=== PATIENT | male | born 1950 | race Caucasian/White ===

== ENCOUNTER → 2019-01-22 07:39 | Outpatient (CLI) | payer MEDICARE, SELFPAY ==
[2019-01-22 08:35] LABS: Add Manual Diff / Slide Review NO; Basophils Absolute Auto 0 /uL (0-100); Basophils Percent Auto 0.6 % (0-2); Eosinophils Absolute Auto 200 /uL (0-450); Eosinophils Percent Auto 2.7 % (2-4); Hematocrit 45.3 % (41-53); Hemoglobin 15.9 g/dL (13.5-17.5); Lymphocytes Absolute Auto 2100 /uL (1100-4500); Mean Corpuscular HGB Conc 35.2 % (30-36); Mean Corpuscular Hemoglobin 31.8 PG (26-34); Mean Corpuscular Volume 90.4 fL (80-100); Monocytes Absolute Auto 400 /uL (0-900); Monocytes Percent Auto 5.4 % (3-14); Neutrophils Absolute Auto 4200 /uL (1500-7000); Neutrophils Percent Auto 60.3 % (50-75); Platelet Count 199 X10^3/uL (150-400); Red Blood Cell Count 5.01 X10^6/uL (4.5-5.9); Red Cell Distribution Width 13.3 % (11.6-14.8); White Blood Cell Count 6.9 X10^3/uL (4.5-11.0)
[2019-01-22 09:08] LABS: Alanine Aminotransferase 25 IU/L (21-72); Albumin Globulin Ratio 1.3 (1.0-2.8); Alkaline Phosphatase 67 U/L (38-126); Aspartate Aminotransferase 27 IU/L (17-59); Bilirubin Total 0.6 mg/dL (0.2-1.3); Blood Urea Nitrogen 18 mg/dL (9-20); Carbon Dioxide 31 mmol/L (22-32); Chloride 102 mmol/L (98-107); Cholesterol 179 mg/dL (140-199); Estimated Glomerular Filt Rate > 60.0 mL/min (>60); Glucose 106 mg/dL (80-110); HDL Cholesterol 62 mg/dL (40-60); HEMOLYSIS < 15 (0-50); LDL Cholesterol Calculated 102 mg/dL (<100); Potassium 4.3 mmol/L (3.4-5.1); Sodium 139 mmol/L (137-145); Triglycerides 74 mg/dL (35-150)
[2019-01-22 09:25] LABS: Erythrocyte Sedimentation Rate 2 MM/HR (0-15)
[2019-01-22 09:57] LABS: Hep C Virus Ab w/Reflex Quant NEGATIVE s/c (NEGATIVE)
== END ==
PROVIDERS: PCP Internal Medicine; Visit Provider Internal Medicine
DX: M13.0 Polyarthritis, unspecified (principal); R53.82 Chronic fatigue, unspecified; E78.2 Mixed hyperlipidemia
CPT/HCPCS: 36415; 80053; 80061; 84443; 85025; 85651; 86803

== ENCOUNTER → 2019-01-29 14:08 | Outpatient (CLI) | payer MEDICARE, SELFPAY ==
--- NOTE | 2019-01-29 | DI.US.S_ITS ---
PROCEDURE: US RENAL COMPLETE INDICATIONS: CALCULUS OF KIDNEY TECHNIQUE: Real-time scanning was performed of the kidneys and bladder, with image documentation. COMPARISON: None. FINDINGS: Kidneys: Kidneys are normal in size. Right kidney measures 11.3 cm long; left kidney measures 12.1 cm long. Right renal cortical thickness is 1.8 cm; left renal cortical thickness is 1.5 cm. Renal cortical echotexture is normal. Multiple echogenic foci are seen scattered in the right renal parenchyma and measures up to 3.4 mm in size. No hydronephrosis. No suspicious solid mass lesions. Bladder: Pre-void bladder volume is 494 mL. Post-void residual is 260 mL. Pre-void images demonstrate no intraluminal masses or stones. On pre-void images, bilateral ureteral jets are noted with color Doppler interrogation. (Of note, ureteral jets may not be detectable in up to 25% of cases due to insufficient differences in specific gravity between ureteral and bladder urine). Miscellaneous: No free pelvic fluid. IMPRESSION: 1. Suggestion of nonobstructing right renal calculi. No hydronephrosis. Normal appearing left kidney. 2. No discrete bladder wall mass or wall thickening. Moderate amount of post void residual. Dictated by: Nav Aquino M.D. on 01/29/2019 at 17:00 Approved by: Nav Aquino M.D. on 01/29/2019 at 17:02
== END ==
PROVIDERS: PCP Internal Medicine; Visit Provider Internal Medicine
DX: N20.0 Calculus of kidney (principal)
CPT/HCPCS: 76770

== ENCOUNTER 2020-06-07 22:24 | Emergency (ER) | payer OTHER, SELFPAY ==
--- NOTE | 2020-06-07 22:33 | DI.RAD.S_ITS ---
PROCEDURE: XR CHEST 1V INDICATIONS: CP and SOB TECHNIQUE: One view of the chest was acquired. COMPARISON: None. FINDINGS: Surgical changes and devices: None. Lungs and pleura: Lungs are clear. No pleural effusions or pneumothorax. Mediastinum: Mediastinal contours appear normal. Heart size is normal. Bones and chest wall: No suspicious bony lesions. Overlying soft tissues appear unremarkable. IMPRESSION: Normal for age, source of current chest pain symptoms is not seen. Dictated by: Jose Lincoln M.D. on 06/08/2020 at 8:26 Approved by: Jose Lincoln M.D. on 06/08/2020 at 8:26
[2020-06-07 22:34] VITALS: PULSE 77; RESP 15; O2SAT 97
[2020-06-07 22:39] VITALS: BP 183/88; PULSE 80; RESP 18; TEMP 37.1; O2SAT 97; BMI 25.1
[2020-06-07 22:51] LABS: Add Manual Diff / Slide Review NO; Basophils Absolute Auto 0 /uL (0-100); Basophils Percent Auto 0.6 % (0-2); Eosinophils Absolute Auto 300 /uL (0-450); Eosinophils Percent Auto 3.7 % (2-4); Hematocrit 45.9 % (41-53); Hemoglobin 15.9 g/dL (13.5-17.5); Lymphocytes Absolute Auto 3100 /uL (1100-4500); Lymphocytes Percent Auto 41.9 % (25-40); Mean Corpuscular HGB Conc 34.6 % (30-36); Mean Corpuscular Volume 89.7 fL (80-100); Monocytes Absolute Auto 500 /uL (0-900); Monocytes Percent Auto 6.6 % (3-14); Neutrophils Absolute Auto 3400 /uL (1500-7000); Neutrophils Percent Auto 47.2 % (50-75); Platelet Count 206 X10^3/uL (150-400); Red Blood Cell Count 5.11 X10^6/uL (4.5-5.9); Red Cell Distribution Width 13.3 % (11.6-14.8); White Blood Cell Count 7.3 X10^3/uL (4.5-11.0)
[2020-06-07 22:58] LABS: Alanine Aminotransferase 27 IU/L (<50); Albumin 4.1 g/dL (3.5-5.0); Albumin Globulin Ratio 1.4 (1.0-2.8); Alkaline Phosphatase 84 U/L (38-126); Aspartate Aminotransferase 29 IU/L (17-59); BUN Creatinine Ratio 16.2 (6-22); Bilirubin Total 0.5 mg/dL (0.2-1.3); Blood Urea Nitrogen 17 mg/dL (9-20); Calcium 9.5 mg/dL (8.4-10.2); Carbon Dioxide 31 mmol/L (22-32); Chloride 103 mmol/L (98-107); Creatine Kinase 49 U/L (55-170); Estimated Glomerular Filt Rate > 60.0 mL/min (>60); Globulin 2.9 g/dL (1.7-4.1); Glucose 113 mg/dL (80-110); HEMOLYSIS 34 (0-50); Lipase 145 U/L (23-300); Potassium 3.7 mmol/L (3.4-5.1); Sodium 137 mmol/L (137-145)
[2020-06-07 23:00] VITALS: BP 169/90; PULSE 71; RESP 14; O2SAT 95
--- NOTE | 2020-06-07 23:08 | ED.GENADULT ---
HPI - General Adult General Chief complaint: Hypertension Stated complaint: high blood pressure Time Seen by Provider: 06/07/20 22:31 Source: patient Mode of arrival: Ambulatory Limitations: no limitations History of Present Illness HPI narrative: 69-year-old who was sent in under recommendation by his primary doctor for evaluation of high blood pressure. He states that he has been having episodes of intermittent shortness of breath for the past 4 months. He states that it has not caused him to modify any of his activities. He states that it mostly occurs at night. Last for varying amounts of time but was less than 30 minutes. Not associated with chest pain. He has been told in the past that he has high blood pressure and was on medication for short period time but has stopped that medication because he did not think that it was helping. This evening had shortness of breath for longer than 30 minutes of took his blood pressure and was elevated. Contact his primary doctor's office who advised him to come to the ER. He states that he was also having nausea at the time. He reports that most of his symptoms have resolved by the time he has arrived here in the ER. Related Data Home Medications Medication Instructions Recorded Confirmed CHOLECALCIFEROL (VITAMIN D) 2,000 units PO QDAY #0 11/28/12 Hydroxytryptophan (#5-HTP) 100 mg PO QDAY #0 11/28/12 Dante's Wort (#GUERDA'S WORT) 150 mg PO #0 11/28/12 Allergies Allergy/AdvReac Type Severity Reaction Status Date / Time Opioids - Morphine Analogues AdvReac Verified 06/07/20 22:39 Review of Systems Constitutional Constitutional: Denies fever(s) and Denies headache(s) ENT Ears, Nose, Mouth, and Throat: Denies headache(s) Cardiovascular Cardiovascular: Denies chest pain and Reports dyspnea Respiratory Respiratory: Denies chest congestion, Denies cough and Reports dyspnea Gastrointestinal Gastrointestinal: Denies abdominal pain, Denies change in bowel habits, Reports nausea and Denies vomiting Genitourinary Genitourinary: Denies dysuria Genitourinary: Denies dysuria Musculoskeletal Musculoskeletal: Denies myalgias Integumentary/Breasts Skin/Breast: Denies rash Neurologic Neurologic: Denies behavioral changes and Denies headache(s) Psychiatric Psychiatric: Denies behavioral changes Hematologic/Lymphatic Hematologic/Lymphatic: Denies easy bleeding and Denies easy bruising Allergic/Immunologic Allergic/Immunologic: Denies urticaria Patient History Medical History Hypertension Social History Smoking Status: Never smoker Smoking Status: Never smoker alcohol intake frequency: 0-2 drinks per day Alcohol type: hard liquor Substance Use Type: does not use Exam Initial Vital Signs Initial Vital Signs: Vital Signs Pulse Rate 77 06/07/20 22:34 Respiratory Rate 15 06/07/20 22:34 Pulse Oximetry 97 06/07/20 22:34 Const General: cooperative, comfortable and well developed Limitations: mental status not altered HENMT Head: normal to inspection and normocephalic Resp Effort & Inspection: normal respiratory effort Auscultation: clear to auscultation bilaterally Cardio Rate: regular rate Rhythm: regular rhythm GI Inspection: non-distended Skin Lesions: no lesions Rashes: no rashes Neuro General: patient alert and patient awake Cognition: normal cognition Speech: speech normal Extrem General: normal to inspection, capillary refill normal and No edema Psych Appearance: grossly normal and well kempt Scores GCS [place] coma scale eye opening: Spontaneous [place]er coma scale verbal response: Orientated Sameer coma scale motor response: Obey commands [place] coma scale total score: 15 HEART Score Heart Score history: Slightly Suspicious Heart Score EKG: Normal Heart Score Age: > or = 65 years old Heart Score risk factors: 1-2 risk factors Heart Score troponin: < or = to normal limit Heart Score Total: 3 Course Orders Ordered: ED Orders 06/07/20 22:33 XR chest 1V Stat EKG-12 Lead Stat 06/07/20 22:40 Complete Blood Count AUTO DIFF Stat Comprehensive Metabolic Panel Stat Lipase Stat NT-proBNP (BNP-Adult 18+) Stat Troponin & CK Cardiac Panel Stat Vital Signs Vital signs: Vital Signs - 8 hr 06/07/20 22:34 06/07/20 22:39 06/07/20 23:00 Temperature 98.7 F Pulse Rate 77 80 71 Respiratory Rate 15 18 14 Blood Pressure 183/88 H 169/90 H Pulse Oximetry 97 97 95 06/07/20 23:30 Temperature Pulse Rate 68 Respiratory Rate 15 Blood Pressure 167/86 H Pulse Oximetry 95 Medical Decision Making Lab Data Lab results reviewed: Yes I reviewed the patient's lab results. Result diagrams: 06/07/20 22:40 06/07/20 22:40 Labs: Lab Results 06/07/20 06/07/20 Range/Units 22:40 22:40 WBC 7.3 (4.5-11.0) X10^3/uL RBC 5.11 (4.5-5.9) X10^6/uL Hgb 15.9 (13.5-17.5) g/dL Hct 45.9 (41-53) % MCV 89.7 (80-100) fL MCH 31.0 (26-34) PG MCHC 34.6 (30-36) % RDW 13.3 (11.6-14.8) % Plt Count 206 (150-400) X10^3/uL Neut % (Auto) 47.2 L (50-75) % Lymph % (Auto) 41.9 H (25-40) % [place] % (Auto) 6.6 (3-14) % Eos % (Auto) 3.7 (2-4) % Baso % (Auto) 0.6 (0-2) % Neut # (Auto) 3400 (6172-8195) /uL Lymph # (Auto) 3100 (1288-0328) /uL [place] # (Auto) 500 (0-900) /uL Eos # (Auto) 300 (0-450) /uL Baso # (Auto) 0 (0-100) /uL Sodium 137 (137-145) mmol/L Potassium 3.7 (3.4-5.1) mmol/L Chloride 103 (98-107) mmol/L Carbon Dioxide 31 (22-32) mmol/L BUN 17 (9-20) mg/dL Creatinine 1.05 (0.66-1.25) mg/dL Estimated GFR > 60.0 (>60) mL/min BUN/Creatinine Ratio 16.2 (6-22) Glucose 113 H (80-110) mg/dL Calcium 9.5 (8.4-10.2) mg/dL Total Bilirubin 0.5 (0.2-1.3) mg/dL AST 29 (17-59) IU/L ALT 27 (<50) IU/L Alkaline Phosphatase 84 (38-126) U/L Total Creatine Kinase 49 L (55-170) U/L CK-MB (CK-2) TNP CK-MB (CK-2) Rel Index TNP Troponin I < 0.012 (0.01-0.034) ng/mL NT-Pro-B Natriuret Pep 51 (<125) pg/mL Total Protein 7.0 (6.3-8.2) g/dL Albumin 4.1 (3.5-5.0) g/dL Globulin 2.9 (1.7-4.1) g/dL Albumin/Globulin Ratio 1.4 (1.0-2.8) Lipase 145 (23-300) U/L Imaging Data Chest x-ray: Radiologist's Impression: No significant abnormalities ECG Data Attestation: I personally reviewed and interpreted this ECG as follows: Prior ECG tracings: not available for review Interpretation: Sinus rhythm Ventricular rate is 72 Normal axis Normal QRS Normal QTC No ST T wave changes MDM Narrative Medical decision making narrative: Patient is not having chest pain. Is slightly hypertensive here in the ER however his chest x-ray, EKG, heart score, troponin, labs, physical exam are all reassuring. He did have COVID-19 approximately 9 months ago. His intermittent shortness of breath started several months after he had this diagnosis. Had a discussion with him regarding shortness of breath. It is not affecting his life. Has not caused him to stop any activities. We did discuss his risk of cardiovascular disease. We discussed his high blood pressure and how he should be taking his blood pressure at home. He is going to contact his primary doctor's office tomorrow for follow-up to discuss stress testing and further evaluation of his shortness of breath and also potential pulmonary function testing. We did discuss importance of him taking his blood pressure at home. Discussed return precautions and follow-up instructions. He expressed understanding and agreement. Discharge Plan Departure Patient Disposition: Home Clinical Impression: Hypertension, Shortness of breath Instructions: Recommendations to Help Prevent High Blood Pressure, DI for High Blood Pressure Activity Restrictions/Additional Instructions: I do recommend that you take your blood pressure at home like we discussed. Also recommend that tomorrow you contact your primary provider to discuss follow-up I did discuss the indications for stress test. Return to the emergency department for any new or worsening symptoms Prescriptions: No Action Hydroxytryptophan (#5-HTP) 100 mg PO QDAY Qty: 0 RF: 0 Dante's Wort (#GUERDA'S WORT) 150 mg PO Qty: 0 RF: 0 CHOLECALCIFEROL (VITAMIN D) 2,000 units PO QDAY Qty: 0 RF: 0 Referrals: Dennys Perez MD [Primary Care Provider] -
[2020-06-07 23:10] LABS: NT-proBNP (BNP-Adult 18+) 51 pg/mL (<125); Troponin I < 0.012 ng/mL (0.01-0.034)
[2020-06-07 23:30] VITALS: BP 167/86; PULSE 68; RESP 15; O2SAT 95
== END 2020-06-08 00:05 | disposition home or self-care (01) ==
PROVIDERS: Emergency Provider Emergency Medicine; PCP Internal Medicine
DX: I10 Essential (primary) hypertension (principal); R06.02 Shortness of breath; R07.9 Chest pain, unspecified
CPT/HCPCS: 36415; 71045; 80053; 82550; 83690; 83880; 84484; 85025; 99283; 99284

== ENCOUNTER 2021-02-28 10:01 | Emergency (ER) | payer OTHER, SELFPAY ==
[2021-02-28 10:10] VITALS: BP 158/79; PULSE 80; RESP 16; TEMP 36.8; O2SAT 99; BMI 25.4
--- NOTE | 2021-02-28 10:51 | ED_ITS ---
HPI - Extremity Problem General Chief complaint: Extremity Problem,Nontraumatic Stated complaint: Right elbow bursa x30 days Time Seen by Provider: 02/28/21 10:49 Source: patient Mode of arrival: Ambulatory Limitations: no limitations History of Present Illness HPI Narrative: Patient is a 70-year-old male who presents with right elbow pain and swelling. 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 He uses both right and left hands, but is mostly left-hand dominant. He has had increased swelling over the last day. No fever or chills. He feels like the skin around it is weeping but has not started draining. He has no no numbness tingling or weakness in his hand or fingers. Related Data Home Medications Medication Instructions Recorded Confirmed CHOLECALCIFEROL (VITAMIN D) 2,000 units PO QDAY #0 11/28/12 Hydroxytryptophan (#5-HTP) 100 mg PO QDAY #0 11/28/12 Dnate's Wort (#GUERDA'S WORT) 150 mg PO #0 11/28/12 Allergies Allergy/AdvReac Type Severity Reaction Status Date / Time Opioids - Morphine Analogues AdvReac Severe Vomiting Verified 02/28/21 10:24 Review of Systems Review of Systems Narrative: GENERAL: Denies chills,fever HEENT: Denies throat pain RESPIRATORY: Denies dyspnea, cough, wheezing CARDIOVASCULAR: Denies chest pain, palpitations GASTROINTESTINAL: Denies nausea, vomiting MUSCULOSKELETAL: Denies extremity pain, injury SKIN: See HPI NEUROLOGIC: Denies weakness, dizziness, headache, numbness 8 point review of systems is negative except for those stated above and HPI Patient History Medical History Hypertension Social History Smoking Status: Never smoker Smoking Status: Never smoker alcohol intake frequency: 0-2 drinks per day Alcohol type: hard liquor Substance Use Type: does not use Exam Initial Vital Signs Initial Vital Signs: Vital Signs Temperature 98.2 F 02/28/21 10:10 Pulse Rate 80 02/28/21 10:10 Respiratory Rate 16 02/28/21 10:10 Blood Pressure 158/79 H 02/28/21 10:10 Pulse Oximetry 99 02/28/21 10:10 GENERAL: Well-appearing, well-nourished and in no acute distress. CARDIOVASCULAR: peripheral pulses in tact, cap refill <2 sec RESPIRATORY: No respiratory distress, speaks in full sentences without difficulty EXTREMITIES: Normal range of motion, no clubbing or edema. Neurovascularly intact NEUROLOGICAL: Cranial nerves II through XII grossly intact. Normal gait and speech. SKIN: Erythematous fluctuant area over olecranon minimal drainage no induration Procedures Bursa Procedure Side of body: right Site of Procedure: olecranon bursa Antisepsis Used: Chlorhexidine Local Anesthetic: lidocaine 1% Amount of anesthesia used (mL): 1 Fluid obtained (mL): 10 Fluid Type: clear (was yellow and clear then got bloody) Patient Tolerated Procedure: Well Complications: localized bleeding Additional Comments: 18 gauge needle used Course Orders Ordered: ED Orders 02/28/21 11:20 Body Fluid Culture Stat Gram Stain Stat 02/28/21 11:25 Cell Count w Diff Body Fluid Stat Crystals Body Fluid - IN-HOUSE Stat Discontinued Medications Lidocaine HCl (Lidocaine 1% (Pf)) 2 ml SUBCUT NOW ONE Stop: 02/28/21 10:52 Last Admin: 02/28/21 11:09 Dose: 2 ml Documented by: NICKY Vital Signs Vital signs: Vital Signs - 8 hr 02/28/21 10:10 Temperature 98.2 F Pulse Rate 80 Respiratory Rate 16 Blood Pressure 158/79 H Pulse Oximetry 99 MDM - Extremity (Nontraumatic) Lab Data Labs: Lab Results 02/28/21 02/28/21 Range/Units 11:25 11:25 Fluid Color Red Fluid Appearance Cloudy Fluid RBC 44113 /uL Fld Tot Nucleated Cell 2832 /uL Fluid Polynuclear WBCs 92 % Fluid Mononuclear WBCs 8 % Fluid Eosinophils 0 % Fluid Other Cells 0 % Fluid Crystals None present (NONE) Body Fluid Clot No clots present MDM Narrative Medical decision making narrative: The patient has fluctuant erythematous area over olecranon probable bursitis. 18 gauge needle used for drainage clear yellow fluid initially drained and became bloody at the end. Unlikely to be inf ectious. Culture and Gram stain are pending. At this time recommend NSAIDs. Discharge Plan Departure Patient Disposition: Home Clinical Impression: Bursitis, olecranon Qualifiers: Laterality: right Qualified Code(s): M70.21 - Olecranon bursitis, right elbow Instructions: Bursitis Activity Restrictions/Additional Instructions: *You have been diagnosed with right elbow bursa *What to do: At this time your bursa was drained. Does not seem that you need antibiotics at this time however fluid is being cultured. *Continue to take medications as directed Ibuprofen 600 mg every 8 hours for about 1 week *Follow up with your primary care provider in 2-3 days *Return to ER if you should have increasing redness, pus, swelling numbness tingling weakness fever, or any new, worsening or concerning symptoms Prescriptions: No Action Hydroxytryptophan (#5-HTP) 100 mg PO QDAY Qty: 0 RF: 0 Dante's Wort (#GUERDA'S WORT) 150 mg PO Qty: 0 RF: 0 CHOLECALCIFEROL (VITAMIN D) 2,000 units PO QDAY Qty: 0 RF: 0 Referrals: Kathy Bergeron MD [Primary Care Provider] -
[2021-02-28] MEDS: LIDOCAINE 1% (PF) 2 ML SUBCUT (11:09)
[2021-02-28 11:14] VITALS: BP 173/90; PULSE 74; O2SAT 95
[2021-02-28 11:37] LABS: Body Fluid Red Blood Cells 69219 /uL; Body Fluid Tot Nucleated Cells 2832 /uL
[2021-02-28 12:03] LABS: Crystals Body Fluid - IN-HOUSE NONE Present
[2021-02-28 12:29] LABS: Body Fluid Appearance CLOUDY; Body Fluid Clotted? NO CLOTS PRESENT; Body Fluid Color RED; Eosinophils Body Fluid 0 %; Mononuclear WBC Body Fluid 8 %; Other Cells Body Fluid 0 %; Polynuclear WBC Body Fluid 92 %
== END 2021-02-28 11:15 | disposition home or self-care (01) ==
PROVIDERS: Emergency Provider Emergency Medicine; PCP Internal Medicine
DX: M70.21 Olecranon bursitis, right elbow (principal)
CPT/HCPCS: 20605; 87070; 87075; 87205; 89051; 89060; 99282; 99283

== ENCOUNTER 2021-08-06 14:14 | Emergency (ER) | payer OTHER, SELFPAY ==
[2021-08-06] VITALS (13 sets, daily range): BP systolic 188–208; BP diastolic 88–97; PULSE 61–91; RESP 13–20; TEMP 36.3; O2SAT 94–99; BMI 25.8
[2021-08-06] MEDS: SODIUM CHLORIDE 0.9% 1,000 ML 1000 ML IV (14:45)
[2021-08-06] MEDS: KETOROLAC 30 MG/ML VIAL 15 MG IV (14:45)
[2021-08-06] MEDS: ONDANSETRON 4 MG/2 ML INJ IV ×2 (14:45→17:45)
[2021-08-06 14:46] LABS: Add Manual Diff / Slide Review NO; Basophils Absolute Auto 0 /uL (0-100); Basophils Percent Auto 0.3 % (0-2); Eosinophils Absolute Auto 0 /uL (0-450); Eosinophils Percent Auto 0.2 % (2-4); Hematocrit 44.6 % (41-53); Hemoglobin 15.7 g/dL (13.5-17.5); Lymphocytes Absolute Auto 1300 /uL (1100-4500); Lymphocytes Percent Auto 11.7 % (25-40); Mean Corpuscular HGB Conc 35.2 % (30-36); Mean Corpuscular Hemoglobin 31.4 PG (26-34); Mean Corpuscular Volume 89.2 fL (80-100); Monocytes Absolute Auto 300 /uL (0-900); Monocytes Percent Auto 2.8 % (3-14); Neutrophils Absolute Auto 9600 /uL (1500-7000); Platelet Count 202 X10^3/uL (150-400); White Blood Cell Count 11.3 X10^3/uL (4.5-11.0)
[2021-08-06 14:55] LABS: Alanine Aminotransferase 29 IU/L (<50); Albumin 4.7 g/dL (3.5-5.0); Albumin Globulin Ratio 1.6 (1.0-2.8); Alkaline Phosphatase 68 U/L (38-126); Aspartate Aminotransferase 33 IU/L (17-59); BUN Creatinine Ratio 17.4 (6-22); Bilirubin Total 0.7 mg/dL (0.2-1.3); Blood Urea Nitrogen 15 mg/dL (9-20); Calcium 9.2 mg/dL (8.4-10.2); Carbon Dioxide 25 mmol/L (22-32); Chloride 103 mmol/L (98-107); Estimated Glomerular Filt Rate > 60.0 mL/min (>60); Glucose 121 mg/dL (80-110); HEMOLYSIS 28 (0-50); Lipase 76 U/L (23-300); Sodium 137 mmol/L (137-145); Total Protein 7.7 g/dL (6.3-8.2)
--- NOTE | 2021-08-06 16:08 | ED.MALEGU ---
HPI - Male Genitourinary <CALIXTO Botello - Last Filed: 08/06/21 20:28> General Chief complaint: Urogenital-Male Stated complaint: kidney stones Time Seen by Provider: 08/06/21 15:57 Source: patient Mode of arrival: Ambulatory History of Present Illness HPI Narrative: 70-year-old male presents to the emergency department complaining of right lower quadrant pain and a history of kidney stones in the past with feeling like he has another right-sided stone. Patient states that in the past he has normally had back pain associated with this, he has not had that but states that his pain is deep on the right lower quadrant and he has not had any problems with his bowels. Patient denies any nausea, vomiting, diarrhea, epigastric pain, chest pain, shortness of breath, fever, dizziness, or urinary retention. Related Data Home Medications Medication Instructions Recorded Confirmed CHOLECALCIFEROL (VITAMIN D) 2,000 units PO QDAY #0 11/28/12 Hydroxytryptophan (#5-HTP) 100 mg PO QDAY #0 11/28/12 Dante's Wort (#GUERDA'S WORT) 150 mg PO #0 11/28/12 Previous Rx's Medication Instructions Recorded hydromorphone 2 mg tablet 1 mg PO Q6H PRN #7 tab 08/06/21 (Dilaudid) ketorolac 10 mg tablet 10 mg PO Q6H PRN 5 Days #14 tab 08/06/21 ondansetron 4 mg disintegrating 4 mg PO Q8H PRN #10 tab 08/06/21 tablet tamsulosin 0.4 mg capsule (Flomax) 0.4 mg PO DAILY #14 cap 08/06/21 tramadol 50 mg tablet 50 mg PO BID PRN #14 tab 08/06/21 Allergies Allergy/AdvReac Type Severity Reaction Status Date / Time Opioids - Morphine Analogues AdvReac Severe Vomiting Verified 08/06/21 14:19 Review of Systems <CALIXTO Botello - Last Filed: 08/06/21 20:28> Review of Systems Narrative: General: denies fever, chills, malaise, sweats, fatigue Head/Neck: denies headache, neck pain, dizziness Eyes: denies visual changes, eye pain Cardio: denies chest pain, palpitations, edema Respiratory: denies dyspnea, cough, orthopnea GI: Endorses right-sided flank pain without abdominal pain, nausea, vomiting, or diarrhea : denies dysuria, hematuria, urinary retention, frequency or incontinence MSK: denies joint pain, muscle weakness Skin: denies rash, itching, skin lesions or other Neuro: denies numbness, tingling Patient History <CALIXTO Botello - Last Filed: 08/06/21 20:28> Medical History Hypertension Social History Smoking Status: Never smoker Smoking Status: Never smoker alcohol intake frequency: 0-2 drinks per day Alcohol type: hard liquor Substance Use Type: does not use Exam <CALIXTO Botello - Last Filed: 08/06/21 20:28> Narrative Exam Narrative: Independently reviewed vitals signs and nursing notes. General: Cooperative, comfortable, in no acute distress, well developed and well groomed Head/Neck: Normal visual inspection and supple, atraumatic, no JVD or lymphadenopathy. Normal facial exam Eyes: Pupils equal round and reactive, EOMI, conjunctiva normal, no scleral icterus or injections Nose: External nose normal, nares patent, no rhinorrhea, without purulent drainage Mouth/Throat: uvula midline, moist mucus membranes Cardio: Regular rate and rhythm, no peripheral edema, warm extremities Respiratory: Normal respiratory effort, able to speak in complete sentences without audible wheezing, stridor, or rales. No retractions. GI: Abdomen soft,Tender over right flank area, nontender abdominal quadrants, nondistended, no masses or exquisite tenderness with exam MSK: Moves all extremities, neurovascularly intact Skin: Normal capillary refill, no rash Neuro: Normal speech and cognition, normal gait, A&O x3, tone normal, moves all extremities Psych: Mental status is grossly normal, speech is clear, congruent mood, normal affect Initial Vital Signs Initial Vital Signs: Vital Signs Temperature 97.4 F L 08/06/21 14:15 Pulse Rate 61 08/06/21 14:15 Respiratory Rate 15 08/06/21 14:15 Blood Pressure 201/92 H 08/06/21 14:15 Pulse Oximetry 98 08/06/21 14:15 <Richelle Sr DO - Last Filed: 08/07/21 09:28> Initial Vital Signs Initial Vital Signs: Vital Signs Temperature 97.4 F L 08/06/21 14:15 Pulse Rate 61 08/06/21 14:15 Respiratory Rate 15 08/06/21 14:15 Blood Pressure 201/92 H 08/06/21 14:15 Pulse Oximetry 98 08/06/21 14:15 Course <CALIXTO Botello - Last Filed: 08/06/21 20:28> Orders Ordered: Discontinued Medications Acetaminophen (Acetaminophen 325 Mg Tablet) 975 mg PO NOW ONE Stop: 08/06/21 18:29 Last Admin: 08/06/21 18:37 Dose: 975 mg Documented by: LORENE Hydromorphone HCl (Hydromorphone 0.5 Mg Inj) 0.5 mg IV NOW ONE Stop: 08/06/21 18:28 Last Admin: 08/06/21 18:47 Dose: 0.5 mg Documented by: LORENE Sodium Chloride (Normal Saline 0.9%) 1,000 mls @ 1,000 mls/hr IV BOLUS ONE Stop: 08/06/21 15:28 Last Infusion: 08/06/21 16:35 Dose: 0 mls/hr Documented by: Admin: 08/06/21 14:45 Dose: 1,000 mls/hr Documented by: CEDRICK Lidocaine HCl 6 ml/ Sodium (Chloride) 56 mls @ 336 mls/hr IV NOW ONE Stop: 08/06/21 18:31 Last Infusion: 08/06/21 19:05 Dose: 0 mls/hr Documented by: Admin: 08/06/21 18:38 Dose: 336 mls/hr Documented by: LORENE Ketorolac Tromethamine (Ketorolac 30 Mg/Ml Vial) 15 mg IV NOW ONE Stop: 08/06/21 14:37 Last Admin: 08/06/21 14:45 Dose: 15 mg Documented by: CEDRICK Ondansetron HCl (Ondansetron 4 Mg/2 Ml Inj) 4 mg IV NOW ONE Stop: 08/06/21 14:30 Last Admin: 08/06/21 14:45 Dose: 4 mg Documented by: CEDRICK Ondansetron HCl (Ondansetron 4 Mg/2 Ml Inj) 4 mg IV NOW ONE Stop: 08/06/21 17:38 Last Admin: 08/06/21 17:45 Dose: 4 mg Documented by: LORENE Tamsulosin HCl (Tamsulosin 0.4 Mg Capsule) 0.4 mg PO NOW ONE Stop: 08/06/21 16:33 Last Admin: 08/06/21 16:47 Dose: 0.4 mg Documented by: LORENE Tramadol HCl (Tramadol 50 Mg Tablet) 50 mg PO NOW ONE Stop: 08/06/21 17:38 Last Admin: 08/06/21 17:45 Dose: 50 mg Documented by: LORENE Vital Signs Vital signs: Vital Signs - 8 hr 08/06/21 14:15 08/06/21 15:03 08/06/21 15:04 Temperature 97.4 F L Pulse Rate 61 64 Respiratory Rate 15 17 Blood Pressure 201/92 H 199/97 H Pulse Oximetry 98 99 08/06/21 15:30 08/06/21 16:00 08/06/21 16:30 Temperature Pulse Rate 63 66 62 Respiratory Rate 14 14 20 Blood Pressure 200/93 H 189/91 H Pulse Oximetry 96 97 98 08/06/21 16:31 08/06/21 16:51 08/06/21 17:00 Temperature Pulse Rate 63 63 65 Respiratory Rate 20 13 14 Blood Pressure 203/91 H 198/93 H 188/95 H Pulse Oximetry 98 98 98 08/06/21 17:30 08/06/21 18:00 08/06/21 18:30 Temperature Pulse Rate 68 66 72 Respiratory Rate 17 18 18 Blood Pressure 195/91 H 208/95 H 190/91 H Pulse Oximetry 98 96 95 08/06/21 19:32 Temperature Pulse Rate 91 H Respiratory Rate 18 Blood Pressure 189/88 H Pulse Oximetry 94 <Richelle Sr DO - Last Filed: 08/07/21 09:28> Orders Ordered: Discontinued Medications Acetaminophen (Acetaminophen 325 Mg Tablet) 975 mg PO NOW ONE Stop: 08/06/21 18:29 Last Admin: 08/06/21 18:37 Dose: 975 mg Documented by: LORENE Hydromorphone HCl (Hydromorphone 0.5 Mg Inj) 0.5 mg IV NOW ONE Stop: 08/06/21 18:28 Last Admin: 08/06/21 18:47 Dose: 0.5 mg Documented by: LORENE Sodium Chloride (Normal Saline 0.9%) 1,000 mls @ 1,000 mls/hr IV BOLUS ONE Stop: 08/06/21 15:28 Last Infusion: 08/06/21 16:35 Dose: 0 mls/hr Documented by: Admin: 08/06/21 14:45 Dose: 1,000 mls/hr Documented by: CEDRICK Lidocaine HCl 6 ml/ Sodium (Chloride) 56 mls @ 336 mls/hr IV NOW ONE Stop: 08/06/21 18:31 Last Infusion: 08/06/21 19:05 Dose: 0 mls/hr Documented by: Admin: 08/06/21 18:38 Dose: 336 mls/hr Documented by: LORENE Ketorolac Tromethamine (Ketorolac 30 Mg/Ml Vial) 15 mg IV NOW ONE Stop: 08/06/21 14:37 Last Admin: 08/06/21 14:45 Dose: 15 mg Documented by: CEDRICK Ondansetron HCl (Ondansetron 4 Mg/2 Ml Inj) 4 mg IV NOW ONE Stop: 08/06/21 14:30 Last Admin: 08/06/21 14:45 Dose: 4 mg Documented by: CEDRICK Ondansetron HCl (Ondansetron 4 Mg/2 Ml Inj) 4 mg IV NOW ONE Stop: 08/06/21 17:38 Last Admin: 08/06/21 17:45 Dose: 4 mg Documented by: LORENE Tamsulosin HCl (Tamsulosin 0.4 Mg Capsule) 0.4 mg PO NOW ONE Stop: 08/06/21 16:33 Last Admin: 08/06/21 16:47 Dose: 0.4 mg Documented by: LORENE Tramadol HCl (Tramadol 50 Mg Tablet) 50 mg PO NOW ONE Stop: 08/06/21 17:38 Last Admin: 08/06/21 17:45 Dose: 50 mg Documented by: LORENE Vital Signs Vital signs: Vital Signs - 8 hr 08/06/21 14:15 08/06/21 15:03 08/06/21 15:04 Temperature 97.4 F L Pulse Rate 61 64 Respiratory Rate 15 17 Blood Pressure 201/92 H 199/97 H Pulse Oximetry 98 99 08/06/21 15:30 08/06/21 16:00 08/06/21 16:30 Temperature Pulse Rate 63 66 62 Respiratory Rate 14 14 20 Blood Pressure 200/93 H 189/91 H Pulse Oximetry 96 97 98 08/06/21 16:31 08/06/21 16:51 08/06/21 17:00 Temperature Pulse Rate 63 63 65 Respiratory Rate 20 13 14 Blood Pressure 203/91 H 198/93 H 188/95 H Pulse Oximetry 98 98 98 08/06/21 17:30 08/06/21 18:00 08/06/21 18:30 Temperature Pulse Rate 68 66 72 Respiratory Rate 17 18 18 Blood Pressure 195/91 H 208/95 H 190/91 H Pulse Oximetry 98 96 95 08/06/21 19:32 Temperature Pulse Rate 91 H Respiratory Rate 18 Blood Pressure 189/88 H Pulse Oximetry 94 MDM - Male Genitourinary <CALIXTO Botello - Last Filed: 08/06/21 20:28> Lab Data Result diagrams: 08/06/21 14:22 08/06/21 14:22 Labs: Lab Results 08/06/21 08/06/21 08/06/21 Range/Units 14:22 14:22 15:50 WBC 11.3 H (4.5-11.0) X10^3/uL RBC 5.00 (4.5-5.9) X10^6/uL Hgb 15.7 (13.5-17.5) g/dL Hct 44.6 (41-53) % MCV 89.2 (80-100) fL MCH 31.4 (26-34) PG MCHC 35.2 (30-36) % RDW 13.0 (11.6-14.8) % Plt Count 202 (150-400) X10^3/uL Neut % (Auto) 85.0 H (50-75) % Lymph % (Auto) 11.7 L (25-40) % [place] % (Auto) 2.8 L (3-14) % Eos % (Auto) 0.2 L (2-4) % Baso % (Auto) 0.3 (0-2) % Neut # (Auto) 9600 H (6460-9832) /uL Lymph # (Auto) 1300 (4561-1452) /uL [place] # (Auto) 300 (0-900) /uL Eos # (Auto) 0 (0-450) /uL Baso # (Auto) 0 (0-100) /uL Sodium 137 (137-145) mmol/L Potassium 4.0 (3.4-5.1) mmol/L Chloride 103 (98-107) mmol/L Carbon Dioxide 25 (22-32) mmol/L BUN 15 (9-20) mg/dL Creatinine 0.86 (0.66-1.25) mg/dL Estimated GFR > 60.0 (>60) mL/min BUN/Creatinine Ratio 17.4 (6-22) Glucose 121 H (80-110) mg/dL Calcium 9.2 (8.4-10.2) mg/dL Total Bilirubin 0.7 (0.2-1.3) mg/dL AST 33 (17-59) IU/L ALT 29 (<50) IU/L Alkaline Phosphatase 68 (38-126) U/L Total Protein 7.7 (6.3-8.2) g/dL Albumin 4.7 (3.5-5.0) g/dL Globulin 3.0 (1.7-4.1) g/dL Albumin/Globulin Ratio 1.6 (1.0-2.8) Lipase 76 (23-300) U/L Urine RBC 10-30/hpf H (0-5/HPF) Urine WBC 0-1/hpf (0-5/HPF) Ur Squamous Epith Cells 0-1 /hpf (0-5/HPF) Urine Bacteria Occasional (0-1) (None) Ur Culture Indicated? Cult not indicated Urine Dip Bedside Urine Glucose Negative Bedside Urine Bilirubin - Negative Bedside Urine Ketone + 15 Urine Specific [place] 1.020 Bedside Urine Occult Blood ++ Bedside Urine pH 6 Bedside Urine Protein +/- 15 Bedside Urine Urobilinogen - Negative Bedside Urine Nitrite - Negative Bedside Urine Leukocytes - Negative Esterase Imaging Data CT scan - abdomen/pelvis: Radiologist's Impression: PROCEDURE:? CT KIDNEY URETER BLADDER (KUB) ? INDICATIONS:? hx nephrolithiasis, RLQ pain ? TECHNIQUE:? Axial sections were acquired from the lung bases to the pubic symphysis.? Coronal and sagittal reformats were performed.? For radiation dose reduction, the following was used: ?automated exposure control, adjustment of mA and/or kV according to patient size.? ? COMPARISON:? [facility], CT, KIDNEY/ URETER/BLADDER, 10/09/2014, 0:59. ? FINDINGS:? Image quality:? Excellent.? ? Lung bases:? 5 mm nodule in the periphery of the right lower lobe remains unchanged from the prior.? Additional right middle lobe calcified granuloma is also stable Heart:? No significant findings. ? URINARY: Right Kidney:? 8 mm calculus in the upper pole the right kidney is new from the prior.? Trace hydronephrosis. Right Ureter:? 3 mm distal left right ureteral calculus is 2.5 cm from the ureterovesical junction ? Left Kidney:? Several left renal calculi present in the left kidney, largest in the lower pole measures 9 x 3 mm.? No hydronephrosis. Left Ureter:? No hydroureter.? ? Bladder:? Normal wall thickness. No stones. ? ? ? ABDOMEN: Liver:? Unremarkable.? ? Gallbladder:? Unremarkable.? ? Biliary ducts:? Unremarkable.? ? Pancreas:? Unremarkable.? ? Spleen:? Unremarkable.? ? Adrenal Glands:? Unremarkable.? ? ? Stomach and Bowel:? Stomach, small bowel loops, and colon are unremarkable.? Peritoneum:? No abnormal intraperitoneal fluid.? No free air.? ? Ventral Wall: ? No hernia.? Abdominal Nodes:? No enlarged retroperitoneal or mesenteric lymph nodes.? Vessels:? Aorta and inferior vena cava are normal in size.? ? PELVIS: Pelvic Organs:? Unremarkable.? ? Pelvic Nodes: Unremarkable. Miscellaneous: No inguinal hernias are seen. ? ? ? Bones:? Unremarkable. ? IMPRESSION:? ? Trace hydronephrosis and hydroureter related to 3 mm distal right ureteral calculus. ? Additional bilateral nonobstructing renal calculi ? Approved by: Kd Gallegos M.D. on 08/06/2021 at 15:58? MDM Narrative Medical decision making narrative: 70-year-old male presents to the emergency department complaining of right-sided flank pain and he has a history of kidney stones in the past. He denies fever, nausea or vomiting. Lab work shows a mild leukocytosis of 11.3 without left shift, creatinine 0.86 baseline of 1, no elevated liver enzymes, UA shows red blood cells without bacteria or white blood cells. CT KUB shows trace hydronephrosis and hydroureter related to a 3 mm distal right ureteral calculus with additional bilateral nonobstructing renal calculi. Patient was given 1 L of normal saline, 50 mg of Toradol, Flomax, tramadol, and he developed worsening pain. This was treated with 0.5 mg IV Dilaudid and lidocaine and he was able to have relief of his pain. Patient's previous urologist is Dr. Patel. Recommend close follow-up with his urologist, he was referred to Dr. Fernandez if unable to get in with him. Patient was given a prescription, tramadol, Zofran, Toradol p.o., and Dilaudid for breakthrough pain. Patient Has a history of nausea and vomiting related to P.o. opioids in the past despite premedication with antiemetics, he was very concerned about taking any opioids for his pain. He was instructed to use Dilaudid if you have 2 and break a pill in half, and premedicate with Zofran. Patient was given strict return precautions including for pain control. He states that he felt much better and is ready to go home. Patient is appropriate and amenable to discharge home. Vital signs are stable on repeat examination is unremarkable. Patient has been informed of results. Patient has been given strict return to ER precautions for any new or worsening symptoms. Patient understands to follow up closely with outpatient providers as instructed. Patient understands plan and agrees to discharge home. All questions and concerns answered at this time. <Richelle Sr, DO - Last Filed: 08/07/21 09:28> Lab Data Labs: Lab Results 08/06/21 08/06/21 08/06/21 Range/Units 14:22 14:22 15:50 WBC 11.3 H (4.5-11.0) X10^3/uL RBC 5.00 (4.5-5.9) X10^6/uL Hgb 15.7 (13.5-17.5) g/dL Hct 44.6 (41-53) % MCV 89.2 (80-100) fL MCH 31.4 (26-34) PG MCHC 35.2 (30-36) % RDW 13.0 (11.6-14.8) % Plt Count 202 (150-400) X10^3/uL Neut % (Auto) 85.0 H (50-75) % Lymph % (Auto) 11.7 L (25-40) % Bos[place] % (Auto) 2.8 L (3-14) % Eos % (Auto) 0.2 L (2-4) % Baso % (Auto) 0.3 (0-2) % Neut # (Auto) 9600 H (2351-6171) /uL Lymph # (Auto) 1300 (9705-1174) /uL [place] # (Auto) 300 (0-900) /uL Eos # (Auto) 0 (0-450) /uL Baso # (Auto) 0 (0-100) /uL Sodium 137 (137-145) mmol/L Potassium 4.0 (3.4-5.1) mmol/L Chloride 103 (98-107) mmol/L Carbon Dioxide 25 (22-32) mmol/L BUN 15 (9-20) mg/dL Creatinine 0.86 (0.66-1.25) mg/dL Estimated GFR > 60.0 (>60) mL/min BUN/Creatinine Ratio 17.4 (6-22) Glucose 121 H (80-110) mg/dL Calcium 9.2 (8.4-10.2) mg/dL Total Bilirubin 0.7 (0.2-1.3) mg/dL AST 33 (17-59) IU/L ALT 29 (<50) IU/L Alkaline Phosphatase 68 (38-126) U/L Total Protein 7.7 (6.3-8.2) g/dL Albumin 4.7 (3.5-5.0) g/dL Globulin 3.0 (1.7-4.1) g/dL Albumin/Globulin Ratio 1.6 (1.0-2.8) Lipase 76 (23-300) U/L Urine RBC 10-30/hpf H (0-5/HPF) Urine WBC 0-1/hpf (0-5/HPF) Ur Squamous Epith Cells 0-1 /hpf (0-5/HPF) Urine Bacteria Occasional (0-1) (None) Ur Culture Indicated? Cult not indicated Urine Dip Bedside Urine Glucose Negative Bedside Urine Bilirubin - Negative Bedside Urine Ketone + 15 Urine Specific [place] 1.020 Bedside Urine Occult Blood ++ Bedside Urine pH 6 Bedside Urine Protein +/- 15 Bedside Urine Urobilinogen - Negative Bedside Urine Nitrite - Negative Bedside Urine Leukocytes - Negative Esterase Discharge Plan Departure Patient Disposition: Home Clinical Impression: Calculus, ureteral Hydronephrosis Qualifiers: Hydronephrosis type: unspecified Qualified Code(s): N13.30 - Unspecified hydronephrosis Instructions: DI for Kidney Stones Activity Restrictions/Additional Instructions: *You have been diagnosed with A 3 mm stone in your right ureter with a trace of hydronephrosis. You have additional bilateral nonobstructing renal calculi. Please follow-up with your urologist as soon as possible. I will send your chart to him, please call [phone] to establish care with a new primary care provider. I sent your medications to the [facility], please try and stay hydrated, hopefully your passed her stone soon, take Flomax 1st thing in the morning, take your ketorolac every 6 hours to help with your inflammation and pain with food and water. Please break 1 of the dilaudid in half if you need strong pain medicine, take it with food and water 30 minutes after taking Zofran for nausea. If this goes well, you may take the other half of it. Thank you for trusting us with your care, I hope that you feel better soon, please follow-up closely with your urologist, I have referred you to Dr. Fernandez if you are unable to get in to yours. Feel better soon. *What to do: *Please continue to take your regular medications as directed. [x ] New medication prescriptions sent to your pharmacy: [[facility]] [ ] New medication written as a paper prescription [ ] No new medications given *Please follow up with your primary care provider in 2-3 days, call for an appointment. Let them know you were seen in the Emergency Department and that we ask that you be seen in follow up. We will electronically transmit a record of today's note if your PCP is in our system *If you do not have a primary care provider please contact the [facility] Resource line at [phone]. They will ask some questions about your medical history and help get you set up with a doctor in the community. *Return to Emergency Department if you should have any new, worsening or concerning symptoms, such as [fever greater than 101F, chills, worsening pain, persistent vomiting or other bothersome symptoms] Prescriptions: New ketorolac 10 mg tablet 10 mg PO Q6H PRN (Reason: pain) 5 Days Qty: 14 0RF hydromorphone [Dilaudid] 2 mg tablet 1 mg PO Q6H PRN (Reason: pain) Qty: 7 0RF tamsulosin [Flomax] 0.4 mg capsule 0.4 mg PO DAILY Qty: 14 0RF ondansetron 4 mg tablet,disintegrating 4 mg PO Q8H PRN (Reason: nausea and vomiting) Qty: 10 0RF tramadol 50 mg tablet 50 mg PO BID PRN (Reason: pain) Qty: 14 0RF No Action Hydroxytryptophan (#5-HTP) 100 mg PO QDAY Qty: 0 0RF Dante's Wort (#GUERDA'S WORT) 150 mg PO Qty: 0 0RF CHOLECALCIFEROL (VITAMIN D) 2,000 units PO QDAY Qty: 0 0RF Referrals: Tonie Patel MD [Non-Staff] - 3-5 days Carlos Fernandez MD [Physician] - Kathy Bergeron MD [Primary Care Provider] - <Richelle Sr DO - Last Filed: 08/07/21 09:28> Cosign ED Attending Cosstacyature Attestation: I was immediately available in the department for consultation. Documentation has been reviewed.
[2021-08-06 16:23] LABS: Bacteria Urine Occasional (0-1); Culture Indicated Urine Cult Not Indicated; RBC Urine 10-30/HPF (0-5/HPF); Squamous Epithelial Cell Urine 0-1 /HPF (0-5/HPF); WBC Urine 0-1/HPF (0-5/HPF)
--- NOTE | 2021-08-06 16:31 | DI.CT.S_ITS ---
PROCEDURE: CT KIDNEY URETER BLADDER (KUB) INDICATIONS: hx nephrolithiasis, RLQ pain TECHNIQUE: Axial sections were acquired from the lung bases to the pubic symphysis. Coronal and sagittal reformats were performed. For radiation dose reduction, the following was used: automated exposure control, adjustment of mA and/or kV according to patient size. COMPARISON: [facility], CT, KIDNEY/ URETER/BLADDER, 10/09/2014, 0:59. FINDINGS: Image quality: Excellent. Lung bases: 5 mm nodule in the periphery of the right lower lobe remains unchanged from the prior. Additional right middle lobe calcified granuloma is also stable Heart: No significant findings. URINARY: Right Kidney: 8 mm calculus in the upper pole the right kidney is new from the prior. Trace hydronephrosis. Right Ureter: 3 mm distal left right ureteral calculus is 2.5 cm from the ureterovesical junction Left Kidney: Several left renal calculi present in the left kidney, largest in the lower pole measures 9 x 3 mm. No hydronephrosis. Left Ureter: No hydroureter. Bladder: Normal wall thickness. No stones. ABDOMEN: Liver: Unremarkable. Gallbladder: Unremarkable. Biliary ducts: Unremarkable. Pancreas: Unremarkable. Spleen: Unremarkable. Adrenal Glands: Unremarkable. Stomach and Bowel: Stomach, small bowel loops, and colon are unremarkable. Peritoneum: No abnormal intraperitoneal fluid. No free air. Ventral Wall: No hernia. Abdominal Nodes: No enlarged retroperitoneal or mesenteric lymph nodes. Vessels: Aorta and inferior vena cava are normal in size. PELVIS: Pelvic Organs: Unremarkable. Pelvic Nodes: Unremarkable. Miscellaneous: No inguinal hernias are seen. Bones: Unremarkable. IMPRESSION: Trace hydronephrosis and hydroureter related to 3 mm distal right ureteral calculus. Additional bilateral nonobstructing renal calculi Approved by: Kd Gallegos M.D. on 08/06/2021 at 15:58
[2021-08-06] MEDS: TAMSULOSIN 0.4 MG CAPSULE PO (16:47)
[2021-08-06] MEDS: TRAMADOL 50 MG TABLET PO (17:45)
[2021-08-06] MEDS: ACETAMINOPHEN 325 MG TABLET 975 MG PO (18:37)
[2021-08-06] MEDS: LIDOCAINE 2% 6 ML in SODIUM CHLORIDE 0.9% 50 ML 336 ML IV (18:38)
[2021-08-06] MEDS: HYDROMORPHONE 0.5 MG INJ IV (18:47)
== END 2021-08-06 19:35 | disposition home or self-care (01) ==
PROVIDERS: Emergency Medicine; Emergency Provider Nurse Practitioner Critical Care Medicine; PCP Internal Medicine
DX: N13.2 Hydronephrosis with renal and ureteral calculous obstruction (principal)
CPT/HCPCS: 36415; 74176; 80053; 81003; 81015; 83690; 85025; 87086; 96361; 96365; 96375; 96376; 99284; J1170; J1885; J2405

== ENCOUNTER → 2021-08-13 14:36 | Outpatient (CLI) | payer OTHER, SELFPAY ==
--- NOTE | 2021-08-13 14:38 | DI.RAD.S_ITS ---
PROCEDURE: XR KUB INDICATIONS: Ureteral calculi TECHNIQUE: One view of the abdomen acquired. COMPARISON: [facility], CT, CT KIDNEY URETER BLADDER (KUB), 08/06/2021, 16:36. FINDINGS: Surgical changes and devices: None. Bowel: Bowel gas pattern is normal. Soft tissues: 7 mm right intrarenal calcification appears to have arisen out of the lower pole as seen on prior CT. There are several calcifications in the upper, mid, and lower poles in the left kidney which appear fairly stable in size and position. 3 mm right mid pelvis calcification, phleboliths versus ureteral stone is a stable location compared to prior. Several other pelvic phleboliths are noted. Solid organ shadows are normal. Bones: No suspicious bony lesions. IMPRESSION: 1. Previously nonobstructing right lower pole intrarenal calculus may have risen into the collecting system but still projects over the right kidney shadow. 2. Right distal ureteral calcification versus pelvic phleboliths is unchanged in position. Dictated by: Crista Ch M.D. on 08/13/2021 at 15:05 Approved by: Crista Ch M.D. on 08/13/2021 at 15:14
== END ==
PROVIDERS: PCP Internal Medicine; Referring Provider Urology; Visit Provider Urology
DX: N20.2 Calculus of kidney with calculus of ureter (principal)
CPT/HCPCS: 74018

== ENCOUNTER → 2021-08-16 14:38 | Outpatient (CLI) | payer OTHER, SELFPAY ==
--- NOTE | 2021-08-16 14:39 | DI.RAD.S_ITS ---
PROCEDURE: XR KUB INDICATIONS: Renal calculi TECHNIQUE: One view of the abdomen acquired. COMPARISON: [facility], CT, CT KIDNEY URETER BLADDER (KUB), 08/06/2021, 16:36. [facility], CR, XR KUB, 08/13/2021, 14:38. FINDINGS: Surgical changes and devices: None. Bowel: Bowel gas pattern is normal. Soft tissues: Previously identified 7 mm calcification overlying the right renal pole appears unchanged although partially obscured by overlying stool. A calcification overlying the left renal shadow is present measuring approximately 3 mm and appears unchanged. In addition, additional smaller calcifications are noted overlying the left kidney corresponding to calcifications on prior CT. T previous right pelvic calcification questioned as ureteral calculus is not visualized. Th ere overall poorly visualized secondary to overlying stool. Visualized solid organ contours appear normal in size. Bones: No suspicious bony lesions. IMPRESSION: Persistent calcifications overlying the kidneys felt to be relatively stable given visibility despite overlying loops of stool filled bowel. Dictated by: Kyung Conley M.D. on 08/16/2021 at 16:43 Approved by: Kyung Conley M.D. on 08/16/2021 at 16:45
== END ==
PROVIDERS: PCP Internal Medicine; Referring Provider Urology; Visit Provider Urology
DX: N20.1 Calculus of ureter (principal)
CPT/HCPCS: 74018

== ENCOUNTER → 2021-09-03 09:05 | Outpatient (CLI) | payer OTHER, SELFPAY ==
--- NOTE | 2021-09-03 09:06 | DI.RAD.S_ITS ---
PROCEDURE: XR KUB INDICATIONS: Renal calculi TECHNIQUE: One view of the abdomen acquired. COMPARISON: [facility], CT, KIDNEY/ URETER/BLADDER, 10/09/2014, 0:59. [facility], CT, CT KIDNEY URETER BLADDER (KUB), 08/06/2021, 16:36. [facility], CR, XR KUB, 08/16/2021, 14:50. [facility], CR, XR KUB, 08/13/2021, 14:38. FINDINGS: Surgical changes and devices: None. Bowel: Prominent stool in the rectum. Soft tissues: Right kidney stone measuring 0.6 cm. Left kidney stone measuring 1 cm. 2 or 3 additional stones in the left kidney. These appear unchanged. Calcifications in the pelvis are also unchanged. No suspicious abdominal calcifications. Visualized solid organ contours appear normal in size. Bones: No suspicious bony lesions. IMPRESSION: Bilateral kidney stones and pelvic calcifications are unchanged. If clinically indicated consider CT IVP or CT KUB for repeat evaluation. Dictated by: Estuardo Deluca M.D. on 09/03/2021 at 9:45 Approved by: Estuardo Deluca M.D. on 09/03/2021 at 9:51
== END ==
PROVIDERS: PCP Internal Medicine; Referring Provider Urology; Visit Provider Urology
DX: N20.0 Calculus of kidney (principal)
CPT/HCPCS: 74018

== ENCOUNTER → 2021-11-24 15:24 | Outpatient (CLI) | payer OTHER, SELFPAY ==
[2021-11-24 15:52] LABS: COVID19 -Nasal RAPID Negative (Negative)
== END ==
PROVIDERS: PCP Internal Medicine; Visit Provider Urology
DX: N20.0 Calculus of kidney (principal); M54.50 Low back pain, unspecified; Z20.822 Contact with and (suspected) exposure to COVID-19
CPT/HCPCS: 81002; 87635; 99214

== ENCOUNTER 2021-11-26 10:15 | Day surgery (SDC) | payer OTHER, SELFPAY ==
[2021-11-23 12:29] VITALS: BMI 25.8
[2021-11-26 10:32] VITALS: BMI 25.8
[2021-11-26] MEDS: LACTATED RINGERS 1,000 ML 42 ML IV (10:50)
[2021-11-26 10:52] VITALS: BP 152/88; PULSE 66; RESP 16; TEMP 36.7; O2SAT 97
--- NOTE | 2021-11-26 11:44 | PM.PREOP ---
Pre-operative Note COVID-19 COVID-19 status: Negative Result date/Date tested (Pos, Neg/Pending): 11/24/21 Criteria for continued procedure: Non-surgical alternatives not available or appropriate per current SOC Interval Note History & Physical reviewed/Exam performed by Physician: Yes Changes to H&P: No
[2021-11-26] MEDS: CEFAZOLIN 2 GM/20 ML SYRINGE IV (12:05)
--- NOTE | 2021-11-26 12:30 | SUR.OPER ---
Supine on padded OR bed, head on pillow, arms secured AT SIDES ON TABLE. legs uncrossed, safety belt at thigh, tape over blanket over lower legs.
--- NOTE | 2021-11-26 12:50 | PM.OP.1 ---
Procedure & Clinicians Procedure: Right extracorporeal shockwave lithotripsy and right ureteral stent placement with cystoscopy Same procedure as scheduled: Yes Indications: This is a 71-year-old male who presented with a right ureteral stone which he has passed. He has bilateral renal calculi and presents this time to have his right-sided stones treated by extracorporeal shockwave lithotripsy. To facilitate this a right ureteral stent will be placed. Surgeon: Carlos Fernandez Click Yes if Unassisted: Yes Anesthesia Type: General Operative Notes Findings: Urethra normal along its length with normal mucosa. Prostate exhibits moderate obstructive character. Ureteral orifices in normal position with clear efflux. Bladder exhibits severe trabeculation of but no other abnormality. The 7 Macedonian by multi length stent is left in good position without a string in the right collecting system. The stone was well fragmented at 800 shocks and thus the procedure was stopped at that point. Infected appeared completely fragmented. Closure Type: not applicable Specimen(s): none sent Prosthetic devices, grafts, tissues, transplants, or devices: Right ureteral stent Estimated Blood Loss (mL): 0 Procedure in detail: After informed consent was obtained, the patient was identified and brought to the operating room. The patient was then placed on the Lithotripter. In the supine position anesthesia was induced to maintain. After adequate level of anesthesia the patient was transitioned to the lithotomy position. He was then prepped, draped and prepared for transurethral procedure. After prepping and draping and ensuring an adequate level of anesthesia a cystoscope was passed through the urethra prostate into the bladder under direct vision. Cystoscopy was performed. The right renal orifice was identified and a guidewire passed up and into the collecting system under fluoroscopic visualization. With the wire in good position the stent was passed over the wire in a coaxial fashion position in the renal pelvis under fluoroscopic visualization in the bladder under direct vision. The wire was removed and the stent left in good position. A grasping forceps was then inserted the distal end of the stent was grasped with a nylon heart is removed. Position was once again confirmed by direct vision and fluoroscopy. It was left in position the bladder was drained the scope was removed. The patient was then transitioned to the supine position and the stone was placed at F1 via the imaging targeting system of the Lithotripter. Shock waves were then given for total of 800 shocks going up to level 7. At 800 shocks the shock wave head was rotated out of plaster os copy performed. The stone appeared to be no longer present and so the patient at that point was awakened having tolerated the procedure well he will be transitioned to the postanesthesia care unit. There were no complications he will be discharged to home and will follow-up in the next 7-10 days with a KUB. Complications: none Post-operative Condition: stable Disposition: PACU Plan for aftercare: Patient to follow-up my office with a KUB patient will strain his urine saving all fragments and bring these to follow-up.
[2021-11-26 12:53] VITALS: BP 135/79; PULSE 85; RESP 15; TEMP 36.7; O2SAT 95
[2021-11-26 12:56] VITALS: BP 135/84; PULSE 81; RESP 14; O2SAT 96
[2021-11-26 13:01] VITALS: BP 133/79; PULSE 78; RESP 16; O2SAT 97
[2021-11-26 13:16] VITALS: BP 144/85; PULSE 74; RESP 20; TEMP 36.6; O2SAT 95
[2021-11-26 13:25] VITALS: BP 141/91; PULSE 71; RESP 16; TEMP 36.7; O2SAT 100
== END 2021-11-26 14:15 | disposition home or self-care (01) ==
PROVIDERS: PCP Internal Medicine; Referring Provider Urology; Visit Provider Urology
PROC: (CPT 50590; principal; 2021-11-26 11:45)
DX: N20.0 Calculus of kidney (principal); N32.89 Other specified disorders of bladder; I10 Essential (primary) hypertension; Z87.442 Personal history of urinary calculi
CPT/HCPCS: 50590; 52332; 82962; J0690; J1100; J2405; J2704; J3010

== ENCOUNTER → 2021-12-03 10:15 | Outpatient (CLI) | payer OTHER, SELFPAY ==
--- NOTE | 2021-12-03 10:17 | DI.RAD.S_ITS ---
PROCEDURE: XR KUB INDICATIONS: kidney stones TECHNIQUE: One view of the abdomen acquired. COMPARISON: [facility], CR, XR KUB, 09/03/2021, 8:57. FINDINGS: Surgical changes and devices: Right nephroureteral stent. Bowel: Bowel gas pattern is normal. Soft tissues: The previously noted right intrarenal calculus is not seen. Left renal calculi are redemonstrated, one in the mid upper pole measuring 1.0 cm, a small collection of smaller stones in the lower pole, and one lateral. Pelvic phleboliths are stable. Bones: No suspicious bony lesions. IMPRESSION: 1. Nonvisualization of the previous right intrarenal calculus. It may be obscured by stool. 2. Nephroureteral stent placement on the right. 3. Several stable left intrarenal calculi. Dictated by: Crista Ch M.D. on 12/03/2021 at 12:58 Approved by: Crista Ch M.D. on 12/03/2021 at 13:07
== END ==
PROVIDERS: PCP Internal Medicine; Referring Provider Urology; Visit Provider Urology
DX: N20.0 Calculus of kidney (principal); Z96.0 Presence of urogenital implants
CPT/HCPCS: 74018

== ENCOUNTER → 2021-12-09 10:43 | Outpatient (ROUT) | payer OTHER, SELFPAY ==
[2021-12-14 17:31] LABS: Ca oxalate dihydrate 20 % (.); Ca oxalate monohydr 80 % (.); Size 2x2 mm (.)
== END ==
PROVIDERS: PCP Internal Medicine; Visit Provider Urology
DX: N20.0 Calculus of kidney (principal); M54.50 Low back pain, unspecified; Z96.0 Presence of urogenital implants
CPT/HCPCS: 82365; 99213

== ENCOUNTER → 2021-12-13 12:00 | Outpatient (CLI) | payer OTHER, SELFPAY ==
--- NOTE | 2021-12-13 12:01 | DI.RAD.S_ITS ---
PROCEDURE: XR KUB INDICATIONS: Kidney stones TECHNIQUE: One view of the abdomen acquired. COMPARISON: [facility], CR, XR KUB, 12/03/2021, 10:09. [facility], CR, XR KUB, 09/03/2021, 8:57. FINDINGS: Surgical changes and devices: Right ureteral stent redemonstrated, similar appearance to before. Bowel: Bowel gas pattern is normal. Soft tissues: Multiple calcifications project over the left kidney, not significantly changed in appearance. Largest measures 1.0 cm projecting over the upper kidney, approximately 4 other smaller calcifications present projecting over the mid and inferior kidney. No definite right-sided stones visualized radiographically. Bones: No suspicious bony lesions. IMPRESSION: 1. Similar appearance of the right ureteral stent. 2. Left renal stones present as before. Dictated by: Salvador Dias M.D. on 12/13/2021 at 18:27 Approved by: Salvador Dias M.D. on 12/13/2021 at 18:30
== END ==
PROVIDERS: PCP Internal Medicine; Referring Provider Urology; Visit Provider Urology
DX: N20.0 Calculus of kidney (principal)
CPT/HCPCS: 74018

== ENCOUNTER → 2021-12-16 14:21 | Outpatient (CLI) | payer OTHER, SELFPAY ==
[2021-12-16 15:09] LABS: Appearance Urine UA SL CLOUDY; Bilirubin Urine UA NEGATIVE (NEGATIVE); Color Urine UA YELLOW; Glucose Urine UA NEGATIVE (Negative); Ketones Urine UA NEGATIVE (NEGATIVE); Leukocyte Esterase Urine UA 1+ (NEGATIVE); Nitrite Urine UA NEGATIVE (Negative); Occult Blood Urine UA 3+ (Negative); Protein Urine UA 1+ (Negative); Urobilinogen Urine UA 0.2 E.U./dL (0.2); pH Urine UA 6.5 (4.5-8.0)
[2021-12-16 15:22] LABS: Amorphous Sediment Urine 1+; Bacteria Urine Occasional (0-1); RBC Urine >100/HPF (0-5/HPF); Squamous Epithelial Cell Urine 1-5 /HPF (0-5/HPF); WBC Urine 1-5/HPF (0-5/HPF)
[2021-12-16 15:23] LABS: Culture Indicated Urine Specimen Cultured
== END ==
PROVIDERS: PCP Internal Medicine; Visit Provider Urology
DX: N20.0 Calculus of kidney (principal); R30.0 Dysuria; Z96.0 Presence of urogenital implants
CPT/HCPCS: 81001; 87086; 99214

== ENCOUNTER → 2022-01-12 10:18 | Outpatient (CLI) | payer OTHER, SELFPAY ==
[2022-01-12 11:07] LABS: COVID19 -Nasal RAPID Negative (Negative)
== END ==
PROVIDERS: Visit Provider Urology
DX: Z20.822 Contact with and (suspected) exposure to COVID-19 (principal)
CPT/HCPCS: 87635; C9803

== ENCOUNTER 2022-01-14 11:13 | Day surgery (SDC) | payer OTHER, SELFPAY ==
[2022-01-13 13:33] VITALS: BMI 25.8
[2022-01-14 11:42] VITALS: BP 129/86; PULSE 65; RESP 20; TEMP 36.5; O2SAT 96; BMI 25.8
[2022-01-14] MEDS: LACTATED RINGERS 1,000 ML 42 ML IV (11:58)
--- NOTE | 2022-01-14 13:35 | PM.PREOP ---
Pre-operative Note COVID-19 COVID-19 status: Negative Result date/Date tested (Pos, Neg/Pending): 01/12/22 Criteria for continued procedure: Non-surgical alternatives not available or appropriate per current SOC Interval Note History & Physical reviewed/Exam performed by Physician: Yes Changes to H&P: No
[2022-01-14] MEDS: CEFAZOLIN 2 GM/100 ML PREMIX 100 ML IV (14:30)
--- NOTE | 2022-01-14 15:05 | SUR.OPER ---
For cystoscopy/stent placement: Lithotomy on ESWL bed, head on pillow, arms supported on ESWL bed with gel pads bilaterally. Legs secured in ESWL stirrups. For ESWL: Supine on ESWL bed, head on pillow, arms supported on ESWL bed with gel pads bilaterally.
--- NOTE | 2022-01-14 15:17 | PM.OP.1 ---
Procedure & Clinicians Procedure: Left extracorporeal shockwave lithotripsy, right stent removal, left stent placement, cystoscopy Same procedure as scheduled: Yes Indications: This very pleasant 71-year-old gentleman who had bilateral renal calculi. He has had his right-sided stones treated and has retained stent in place. He presents this time to have his left-sided stones treated the right stent removed and a left ureteral stent placed. Surgeon: Carlos Fernandez Click Yes if Unassisted: Yes Anesthesia Type: General Operative Notes Findings: Right stent was in good position and was removed in its entirety. At cystoscopy urethra normal to the prostatic fossa which shows moderate obstructive character. The stent on the right is in normal position without encrustation is removed. The bladder exhibits minimal edema around the right ureteral orifice. The left ureteral orifices in normal position with clear efflux. No other abnormalities are noted within the bladder. A 7 Montserratian by multi length stent is placed in the left collecting system in good position the string is removed. The patient had shock waves delivered to the stones which there were 3 groups in the kidney. The upper pole stones received 2000 shocks at level 6, the mid kidney stone received 500 shocks at level 6 in the lower pole also 500 shocks level 6 all of them appeared well fragmented at the end of the case when the shockwave head was removed and fluoroscopy was performed. Closure Type: not applicable Specimen(s): none sent Applied: other (Seven Montserratian by multilink stent left collecting system with no string.) Procedure in detail: Procedure in detail: After informed consent was obtained patient was identified and brought to the operating room. He was placed on the Lithotripter where anesthesia was induced to maintain. After ensuring an adequate level of anesthesia the patient was transitioned to the lithotomy position. He was then prepped, draped and prepared for transurethral procedure. After prepping draping and time-out a 21 Montserratian cystoscope was passed through the urethra and into the bladder where cystoscopy was performed. The left ureteral orifice was then identified and a guidewire passed and up and into the collecting system under fluoroscopic visualization. Stent was then passed over the wire in a coaxial fashion position in the renal pelvis under fluoroscopic visualization the bladder under direct vision benign on heart is was removed. The working bridge was then exchanged for grasping forceps. And the right-sided stent was then grasped and removed with the scope in its entirety. This sheath was then reinserted in the patient's bladder drained. The patient was then transitioned to the supine position again had the upper pole stones position did F 2 via the imaging system a shocks waves were delivered to a total of a 1000. The mid polar stones were then targeted and delivered shock waves at to Labor bus that it 500 shocks attention was then turned to the lower pole group which received 500 shocks. At this point all stones appear well fragmented the shockwave head was rotated out of fluoroscopy for was performed confirming the good fragmentation of the stones. At this point the patient was awakened having tolerated the procedure well and without complication. He was transferred to the postanesthesia care unit to recover he will be discharged to home he will strain his urine he will follow up my office in approximately 10-14 days. Complications: none Post-operative Condition: stable Disposition: PACU Plan for aftercare: Discharge to home follow-up my office 10-14 days, straining all urine and saving fragments
[2022-01-14 15:21] VITALS: BP 147/86; PULSE 67; RESP 12; TEMP 36.4; O2SAT 96
[2022-01-14 15:26] VITALS: BP 145/85; PULSE 67; RESP 7; O2SAT 97
[2022-01-14 15:31] VITALS: BP 138/76; PULSE 68; RESP 12; O2SAT 98
[2022-01-14] MEDS: ACETAMINOPHEN 325 MG TABLET 650 MG PO (15:40)
[2022-01-14 15:41] VITALS: BP 154/88; PULSE 74; RESP 11; TEMP 36.6; O2SAT 99
--- NOTE | 2022-01-14 15:42 | SUR.PHASEI ---
Stable PACU stay. Pt medicated with acetamenophen. To OPD.
[2022-01-14 15:59] VITALS: BP 146/86; PULSE 65; RESP 16; TEMP 36.3; O2SAT 98
--- NOTE | 2022-01-14 16:02 | SUR.PHASEII ---
Pt ready to go, sent home with belongings and strainer and container as instructed.
--- NOTE | 2022-01-14 16:28 | SUR.PHASEII ---
Pt left when ready and left in stable condition.
== END 2022-01-14 16:20 | disposition home or self-care (01) ==
PROVIDERS: PCP Internal Medicine; Referring Provider Urology; Visit Provider Urology
PROC: (CPT 50590; principal; 2022-01-14 12:45)
PROC: (CPT 50590; 2022-01-14 12:45)
DX: N20.0 Calculus of kidney (principal)
CPT/HCPCS: 50590; 52332; 82962; J0690; J3010

== ENCOUNTER → 2022-01-21 15:13 | Outpatient (CLI) | payer OTHER, SELFPAY ==
--- NOTE | 2022-01-21 15:14 | DI.RAD.S_ITS ---
PROCEDURE: XR KUB INDICATIONS: kidney stones TECHNIQUE: One view of the abdomen acquired. COMPARISON: [facility], CR, XR KUB, 12/03/2021, 10:09. [facility], CR, XR KUB, 09/03/2021, 8:57. [facility], CR, XR KUB, 08/16/2021, 14:50. [facility], CR, XR KUB, 12/13/2021, 11:49. FINDINGS: Surgical changes and devices: Left ureteral stent has been placed. Right stent removed. Bowel: Bowel gas pattern is normal. Soft tissues: Multiple calcifications projected over the inferior pole of the left kidney, largest fragment measuring roughly 3 mm. Multiple pelvic phleboliths redemonstrated. Bones: No suspicious bony lesions. IMPRESSION: 1. Placement of left ureteral stent. 2. Multiple calcifications projected over the inferior pole left kidney, largest fragment measuring 3 mm. Dictated by: Gentry Fenton [facility] Interpreted: Salvador Dias MD on 01/21/2022 at 16:00 Approved by: Salvador Dias M.D. on 01/21/2022 at 22:29
== END ==
PROVIDERS: PCP Internal Medicine; Referring Provider Urology; Visit Provider Urology
DX: N20.0 Calculus of kidney (principal); Z96.0 Presence of urogenital implants
CPT/HCPCS: 74018

== ENCOUNTER → 2022-02-04 12:03 | Outpatient (CLI) | payer OTHER, SELFPAY ==
--- NOTE | 2022-02-04 12:04 | DI.RAD.S_ITS ---
PROCEDURE: XR KUB INDICATIONS: Kidney stones TECHNIQUE: One view of the abdomen acquired. COMPARISON: [facility], , XR KUB, 01/21/2022, 15:16. FINDINGS: Surgical changes and devices: Left-sided ureteral stent is seen. Bowel: Bowel gas pattern is normal. Soft tissues: Previously noted tiny 3 mm calcification projecting in lower pole of left kidney remains unchanged. Visualized solid organ contours appear normal in size. Bones: No suspicious bony lesions. IMPRESSION: Stable appearing left-sided renal calculus and left-sided ureteral stent in place. Dictated by: Nav Aquino M.D. on 02/04/2022 at 14:38 Approved by: Nav Aquino M.D. on 02/04/2022 at 14:40
== END ==
PROVIDERS: PCP Internal Medicine; Referring Provider Urology; Visit Provider Urology
DX: N20.0 Calculus of kidney (principal)
CPT/HCPCS: 74018

== ENCOUNTER → 2022-02-09 11:47 | Outpatient (CLI) | payer OTHER, SELFPAY ==
[2022-02-15 11:05] LABS: Ca oxalate dihydrate 70 % (.); Ca oxalate monohydr 30 % (.); Size 2x1 mm (.)
== END ==
PROVIDERS: PCP Internal Medicine; Visit Provider Urology
DX: N20.0 Calculus of kidney (principal)
CPT/HCPCS: 82365

== ENCOUNTER → 2022-02-22 11:43 | Outpatient (CLI) | payer OTHER, SELFPAY ==
--- NOTE | 2022-02-22 11:45 | DI.RAD.S_ITS ---
PROCEDURE: XR KUB INDICATIONS: Kidney stones BILATERAL/POST ESWL TECHNIQUE: One view of the abdomen acquired. COMPARISON: [facility], , XR KUB, 02/04/2022, 12:05. FINDINGS: Surgical changes and devices: Double-J left-sided ureteral stent present Bowel: Bowel gas pattern is normal. Soft tissues: No suspicious abdominal calcifications. Visualized solid organ contours appear normal in size. Bones: No suspicious bony lesions. IMPRESSION: Stable left-sided ureteral stent in good position. Renal calculi are nonvisualized Approved by: Kd Gallegos M.D. on 02/22/2022 at 16:11
== END ==
PROVIDERS: PCP Internal Medicine; Referring Provider Urology; Visit Provider Urology
DX: N20.0 Calculus of kidney (principal)
CPT/HCPCS: 74018

== ENCOUNTER → 2022-02-24 14:03 | Outpatient (CLI) | payer OTHER, SELFPAY | PROVIDERS: PCP Internal Medicine; Visit Provider Urology | DX: N20.0 Calculus of kidney (principal) | CPT/HCPCS: 52310; 81002; 87086 ==

== ENCOUNTER → 2022-03-08 13:10 | Outpatient (CLI) | payer OTHER, SELFPAY ==
[2022-03-08 14:05] LABS: Calcium 8.8 mg/dL (8.4-10.2); Uric Acid 7.8 mg/dL (3.5-8.5)
[2022-03-09 07:09] LABS: Parathyroid Hormone Int 30 pg/mL (15-65)
== END ==
PROVIDERS: PCP Internal Medicine; Referring Provider Urology; Visit Provider Urology
DX: N20.0 Calculus of kidney (principal); R39.9 Unspecified symptoms and signs involving the genitourinary system; Z98.890 Other specified postprocedural states; Z87.442 Personal history of urinary calculi
CPT/HCPCS: 36415; 81002; 82310; 83970; 84550; 99213

== ENCOUNTER 2023-01-02 14:30 | Day surgery (SDC) | payer OTHER, SELFPAY ==
--- NOTE | 2023-01-02 | PATH_ITS ---
[facility] Accession Number: [id number] No. of containers..03 Tissue . 01 Material submitted: . PART A: colon - APPENDICILE ORIFICE PART B: colon - DESCENDING COLON POLYP PART C: rectum - RECTAL POLYPS . 01 Diagnosis: A. Appendiceal Orifice, Biopsy: Focal active colitis; please see comment. Negative for granulomas, dysplasia, or malignancy. . B. Descending Colon Polyp: Tubular adenoma. . C. Rectal Polyps: Tubular/tubulovillous adenomas and hyperplastic polyp. [facility] 01/09/2023 1417 Local . 01 Comment: A. The findings in the appendiceal orifice biopsy are most suggestive of an acute self-limited colitis (infectious versus toxin induced). . 01 Electronically signed: . Quentin Noriega MD, PhD, Pathologist NPI- [id number] . 01 Gross description: . Part A: APPENDICILE ORIFICE: Received in formalin is 1 fragment(s) of caldwell, soft tissue measuring 0.1 x 0.1 x 0.1 cm submitted entirely in 1 cassette(s) Part B: DESCENDING COLON POLYP: Received in formalin are 2 fragment(s) of caldwell, soft tissue measuring 0.3 x 0.2 x 0.2 cm to 0.5 x 0.5 x 0.3 cm submitted entirely in 1 cassette(s) Part C: RECTAL POLYPS: Received in formalin are multiple fragment of caldwell soft tissue measuring 1.0 x 0.8 x 0.8 cm in aggregate. Specimen is sectioned and submitted in its entirety in 2 cassettes. /[facility] 01/05/2023 0019 Local . 01 Pathologist provided ICD-10: D12.4, D12.8, K52.9 . 01 CPT . 162612, [id number], [id number] Specimen Comment: A courtesy copy of this report has been sent to [phone] Performed at: 01 [facility] [address] [place] [address], [place], [place] [id number] MD Mehrdad Shahid MD Phone: [phone]
[2023-01-02 14:48] VITALS: BMI 26.1
[2023-01-02 14:50] VITALS: BP 146/96; PULSE 71; RESP 14; TEMP 36.4; O2SAT 99
[2023-01-02] MEDS: LACTATED RINGERS 1,000 ML 42 ML IV (15:03)
--- NOTE | 2023-01-02 15:36 | PM.HP.1 ---
History of Present Illness History of Present Illness Date Patient Seen: 01/02/23 Time Patient Seen: 15:36 Chief complaint: [facility] [place]arrative: Presents for colonoscopy. He had 2 asymptomatic fecal occult blood positive results. He has since noticed a change in bowel habit with change in the caliber of stool. [facility] Medical History (Updated 06/23/22 @ 12:36 by Carlos Fernandez MD) Calcium oxalate stones COVID-19 virus infection (08/2019) H/O nephrolithotomy with removal of calculi History of urinary calculi Hypertension Hypertension complications Kidney stones Low back pain Lower urinary tract symptoms Migraines, neuralgic Osteoarthritis Skin cancer Surgical History H/O vasectomy History of urologic surgery (11/26/21) Hx of lithotripsy Family History Mother Cancer Social History marital status: household members: spouse Smoking Status: Never smoker alcohol intake: current Type(s) of exercise: aerobic frequency: 3-4 times per week Meds Home Medications and Allergies Home Medications Medication Instructions Recorded Confirmed Type cholecalciferol (vitamin D3) 50 50 mcg PO DAILY ##0 11/28/12 01/02/23 History mcg (2,000 unit) capsule (Vitamin D3) omega-3 fatty acids-fish oil 360 1 cap PO DAILY 08/09/21 01/02/23 History mg-1,200 mg capsule (Fish Oil) vitamin B complex (B 1 tab PO DAILY 08/09/21 01/02/23 History Complex-Vitamin B12 tablet) tamsulosin 0.4 mg capsule 0.8 mg PO DAILY #180 caps 11/09/21 01/02/23 Rx risankizumab-rzaa 150 mg/mL 150 mg SUBCUT Q12W 01/14/22 01/02/23 History subcutaneous pen injector (Skyrizi) Allergies Allergy/AdvReac Type Severity Reaction Status Date / Time Opioids - Morphine Analogues Allergy Severe Vomiting Verified 01/02/23 14:46 Review of Systems Review of Systems ROS: Yes All systems reviewed with the patient and are negative except as otherwise documented Exam Vital Signs (past 8 hours): - 01/02/23 14:50 Temperature 97.6 F Pulse Rate 71 Respiratory Rate 14 Blood Pressure 146/96 H Pulse Oximetry 99 Oxygen Delivery Method Room Air Oxygen Delivery Method Room Air Const General: cooperative HENMT Head: normal to inspection Eyes General: appearance normal, both eyes and all related structures Neck Neck: normal visual inspection Chest Chest: normal inspection of the chest Resp Effort & Inspection: normal respiratory effort Cardio Rate: regular rate GI Inspection: normal to inspection Skin General: no rashes or lesions noted Neuro General: patient alert and patient awake Extrem General: normal to inspection and no pedal edema Psych Appearance: grossly normal Assessment & Plan Assessment & Plan narrative: 72-year-old male with fecal occult blood positive testing x2 plus a change in stool caliber. Colonoscopy is pursued today.
--- NOTE | 2023-01-02 16:36 | P.OP.COLON_ITS ---
Operative Date/Time/Diagnoses Date of procedure: 01/02/23 Time of procedure: 16:36 Pre-op diagnosis: Heme-positive stool and a change in stool caliber Post-op diagnosis: same Procedure & Clinicians Study performed: Colonoscopy with hot snare polypectomy, cold snare polypectomy, and biopsies. Same procedure as scheduled: Yes Indications: Heme-positive stool and a change in stool caliber Surgeon: Gume Rocha Procedure Notes SCOAP/Timeout: DONE Procedure in detail: After the risks and benefits were explained, written and verbal informed consent was obtained. The patient was brought into the procedure room and placed into the left lateral decubitus position. Please see anesthesia notes for sedation details. Digital rectal examination was accomplished. The scope was introduced into the patient and advanced under direct visualization to the cecum as identified by the appendiceal orifice and ileocecal valve. The scope was slowly withdrawn to carefully examine the mucosa for any defects or lesions. Compre hensive imaging was accomplished throughout the rectum including the dentate line. The colon was decompressed, the scope was then removed from the patient who tolerated the procedure well. Pediatric colonoscope Bowel prep adequate Scope withdrawal time: 20 minutes Sedation minutes: 29 Complications: none Impression: There was a small perhaps 6 mm polyp in the distal descending colon removed with hot snare. There was an unusual appearance to the appendiceal orifice. I did not see anything that looked like a mucosal based lesion. It did not even really look like a submucosal lesion. The appendiceal orifice appeared to be folded over on itself. Because of its unusual appearance I elected to take a biopsy from this area. In the proximal rectum there were 3 polyps. The smallest was removed with cold snare measuring approximately 4-5 mm in greatest dimension. The middle polyp was perhaps 8 mm in greatest dimension. Hot snare was utilized. The largest polyp was perhaps 12 mm in greatest dimension. This 1 was more on the pedunculated side. Complete removal was apparent for all 3 of these. No additional pathology was appreciated throughout. Endoscopic diagnosis 1. Multiple colon polyps 2. Unusual appendiceal orifice appearance-biopsied Post-procedure Plan for aftercare: 1. Await histopathology. 2. Repeat colonoscopy will likely be suggested for 3 years. Disposition: PACU
[2023-01-02 16:38] VITALS: BP 124/81; PULSE 67; RESP 16; TEMP 36.4; O2SAT 97
[2023-01-02 16:44] VITALS: BP 124/81; PULSE 66; RESP 16; O2SAT 98
[2023-01-02 16:48] VITALS: BP 129/84; PULSE 66; RESP 16; O2SAT 97
[2023-01-02 16:54] VITALS: BP 128/91; PULSE 69; RESP 16; TEMP 36.3; O2SAT 98
== END 2023-01-02 17:06 | disposition home or self-care (01) ==
PROVIDERS: PCP Internal Medicine; Referring Provider Internal Medicine Gastroenterology; Visit Provider Internal Medicine Gastroenterology
PROC: 0DJD8ZZ Inspection of Lower Intestinal Tract, Via Natural or Artificial Opening Endoscopic (ICD-10-PCS; CPT 45378; principal; 2023-01-02 15:30)
DX: K52.89 Other specified noninfective gastroenteritis and colitis (principal); D12.4 Benign neoplasm of descending colon; D12.8 Benign neoplasm of rectum
CPT/HCPCS: 45385; 45380; J2704